=== PATIENT | male | born 2000 | race Two or more races ===

== ENCOUNTER 2022-11-03 17:41 | Emergency (ER) | payer MEDICAID ==
[~2022-11-03] VITALS: Ht 180.3 cm; Wt 68.2 kg
[2022-11-03 17:58] VITALS: TEMP 98.9
[2022-11-03 19:22] VITALS: BP 126/82; PULSE 89; RESP 20
== END 2022-11-03 19:42 | disposition home or self-care (01) ==
LOC: EMS 17:44
DX: T67.5XXA Heat exhaustion, unspecified, initial encounter (principal); R55 Syncope and collapse; X58.XXXA Exposure to other specified factors, initial encounter; Y93.89 Activity, other specified; Y92.89 Other specified places as the place of occurrence of the external cause; Y99.8 Other external cause status; Z98.890 Other specified postprocedural states
CPT/HCPCS: 93005; 99283